=== PATIENT | female | born 1975 | race Caucasian/White ===

== ENCOUNTER → 2020-04-10 15:37 | Outpatient (CLI) | payer BC, SELFPAY ==
--- NOTE | ~2020-04-10 | MM_ITS ---
EXAMINATION: MM screening [facility] w mahendra HISTORY: Screening mammogram TECHNIQUE: Craniocaudal and mediolateral oblique 3-D tomosynthesis images were obtained and synthetic 2-D images were generated. CAD analysis was submitted and interpreted. COMPARISON: Comparison to multiple prior studies sequentially, with oldest reviewed study dated 02/09. BREAST PARENCHYMAL COMPOSITION: The breasts are heterogeneously dense, which may obscure small masses . FINDINGS: There is no evidence of suspicious mass, calcification, or architectural distortion to sugg est malignancy in either breast. There has been no suspicious interval change. IMPRESSION: 1. No mammographic evidence of malignancy. 2. Recommend routine screening mammography in one year. BI-RADS Category 1: Negative Reviewed, dictated and finalized at location A.
== END ==
PROVIDERS: Visit Provider Obstetrics & Gynecology
DX: Z12.31 Encounter for screening mammogram for malignant neoplasm of breast (principal)
CPT/HCPCS: 77063; 77067

== ENCOUNTER → 2021-05-31 16:36 | Outpatient (CLI) | payer BC, SELFPAY ==
--- NOTE | ~2021-05-31 | MM_ITS ---
EXAMINATION: MM screening [facility] BI w mahendra HISTORY: Screening mammogram TECHNIQUE: Craniocaudal and mediolateral oblique 3-D tomosynthesis images were obtained and synthetic 2-D images were generated. CAD analysis was submitted and interpreted. COMPARISON: 04/10/2020, 03/25/2018, 03/04/2018 BREAST PARENCHYMAL COMPOSITION: The breasts are heterogeneously dense, which may obscure small masses . FINDINGS: There is no evidence of suspicious mass, calcification, or architectural distortion to sugg est malignancy in either breast. There has been no suspicious interval change. IMPRESSION: 1. No mammographic evidence of malignancy. 2. Recommend routine screening mammography in one year. BI-RADS Category 1: Negative Reviewed, dictated and finalized at location A.
== END ==
PROVIDERS: Visit Provider Obstetrics & Gynecology
DX: Z12.31 Encounter for screening mammogram for malignant neoplasm of breast (principal)
CPT/HCPCS: 77063; 77067

== ENCOUNTER → 2022-08-29 11:58 | Outpatient (CLI) | payer BC, SELFPAY ==
--- NOTE | ~2022-08-29 | MM_ITS ---
EXAMINATION: MM screening [facility] BI w mahendra HISTORY: Screening TECHNIQUE: Craniocaudal and mediolateral oblique 3-D tomosynthesis images were obtained and synthetic 2-D images were generated. CAD analysis was submitted and interpreted. COMPARISON: Comparison to multiple prior studies sequentially, with oldest reviewed study dated 08/14. BREAST PARENCHYMAL COMPOSITION: The breasts are heterogeneously dense, which may obscure small masses . FINDINGS: There is no evidence of suspicious mass, calcification, or architectural distortion to sugg est malignancy in either breast. There has been no suspicious interval change. IMPRESSION: 1. No mammographic evidence of malignancy. 2. Recommend routine screening mammography in one year. BI-RADS Category 1: Negative Reviewed, dictated and finalized at location A. [employer]
== END ==
PROVIDERS: Visit Provider Obstetrics & Gynecology
DX: Z12.31 Encounter for screening mammogram for malignant neoplasm of breast (principal)
CPT/HCPCS: 77063; 77067

== ENCOUNTER 2024-03-02 00:05 | Day surgery (SDC) | payer BC, SELFPAY ==
[2024-02-17 15:31] VITALS: BMI 29.7
[2024-03-02 08:00] VITALS: BP 123/69; PULSE 83; RESP 18; TEMP 36.3; O2SAT 99; BMI 28.8
[2024-03-02] MEDS: LACTATED RINGERS 1,000 ML 150 ML IV CONT (08:03)
--- NOTE | 2024-03-02 08:27 | WPDANESEPPF ---
Anes - Initial Pre Proc Eval Procedure: Operation Date: 03/02/24 09:30 Proposed Procedures p Screening Colonoscopy - Elías Wilkes MD Date/Time: 03/02/24 08:27 Surgeon: Elías Wilkes MD Pre Op Diagnosis: Neoplasm screening Patient Data Age: 48 Gender: F Height: 1.7 m Weight: 83.6 kg Last Vital Signs Temp 97.3 F L 03/02/24 08:00 Pulse 83 03/02/24 08:00 Resp 18 03/02/24 08:00 BP 123/69 03/02/24 08:00 Pulse Ox 99 03/02/24 08:00 O2 Del Method Room Air 03/02/24 08:00 Allergies Allergy/AdvReac Type Severity Reaction Status Date / Time No Known Allergies Allergy Unknown Verified 03/02/24 07:59 Home Medications Medication Instructions Recorded Confirmed Type fluticasone propionate 50 1 spray intranasal DAILY 01/25/21 03/02/24 History mcg/actuation nasal spray,suspension (Flonase Allergy Relief) calcium carbonate (Calcium 600) 600 mg PO DAILY 12/11/23 03/02/24 History omega-3 fatty acids 1,000 mg 1,000 mg PO DAILY 12/11/23 03/02/24 History capsule Patient hx anesthesia problems: none Family hx anesthesia problems: none Results Review: All pre-operative results and documents have been reviewed as part of the pre-operative evaluation. [facility] Past Medical History Medical History Vaginal delivery Surgical History Surgical History Previous section Family History Family History Grandparent Hypertension Family history of coronary artery disease, Onset Age: 72 Social History Social History Smoking status: Never smoker Second hand tobacco smoke exposure: No Alcohol intake: current Drinks per week: 8 Alcohol use details: GLASSES WINE Substance use: never Substance use type: does not use Do You Feel Safe in your Home?: Yes Lack of Transportation: No Lack of Food: Never True Current Housing: I Have Housing Concerned About Future Housing: No Difficulty Paying Gas/Electric Bills: No Difficulty Paying for Meds: No Currently Unemployed: No Education: Bachelor's Degree Difficulty w/ Childcare or Family Care: No Living arrangements: with family Spiritual care concerns: No Anes - Eval Final PreProcedure Day of Procedure 03/02/24 08:27 Patient weight: normal Heart: regular rate and rhythm Lungs: clear to auscultation Airway: Mallampati scale class II Neurological: alert and oriented Last oral intake: >/= 8 hours ASA classification: II Emergent: no Anesthetic plan: proceed Anesthesia type and monitoring: general GIVS and standard monitoring Results Review: All pre-operative results and documents have been reviewed as part of the pre-operative evaluation. Informed Consent: The patient's anesthetic plan and its attendant risks and benefits were discussed with the patient/family/POA. Questions were solicited and answers provided to the satisfaction of the patient/family/POA.
--- NOTE | 2024-03-02 08:41 | PM.HPGS ---
History of Present Illness History of Present Illness Consent: Risks, benefits, and alternatives have been discussed and questions answered. Patient agrees to proceed with procedure. Chief complaint: Neoplasm screening Narrative: Ale Milligan is a 48 year old female here for first screening colonoscopy Review of Systems Review of Systems: All systems reviewed & are unremarkable except as noted in HPI and below PMFSH Past Medical History Medical History (Updated 03/02/24 @ 08:45 by Elías Wilkes MD) Colon cancer screening Vaginal delivery Surgical History Surgical History Previous section Family History Family History Grandparent Hypertension Family history of coronary artery disease, Onset Age: 72 Social History Social History Smoking status: Never smoker Second hand tobacco smoke exposure: No Alcohol intake: current Drinks per week: 8 Alcohol use details: GLASSES WINE Substance use: never Substance use type: does not use Do You Feel Safe in your Home?: Yes Lack of Transportation: No Lack of Food: Never True Current Housing: I Have Housing Concerned About Future Housing: No Difficulty Paying Gas/Electric Bills: No Difficulty Paying for Meds: No Currently Unemployed: No Education: Bachelor's Degree Difficulty w/ Childcare or Family Care: No Living arrangements: with family Spiritual care concerns: No Meds Home Medications and Allergies Home Medications Medication Instructions Recorded Confirmed Type fluticasone propionate 50 1 spray intranasal DAILY 01/25/21 03/02/24 History mcg/actuation nasal spray,suspension (Flonase Allergy Relief) calcium carbonate (Calcium 600) 600 mg PO DAILY 12/11/23 03/02/24 History omega-3 fatty acids 1,000 mg 1,000 mg PO DAILY 12/11/23 03/02/24 History capsule Allergies Allergy/AdvReac Type Severity Reaction Status Date / Time No Known Allergies Allergy Unknown Verified 03/02/24 07:59 Vital Signs Vital Signs - 24 hr 03/02/24 08:00 Temperature 97.3 F L Pulse Rate 83 Respiratory Rate 18 Blood Pressure 123/69 Pulse Oximetry 99 Oxygen Delivery Room Air Exam Const: General: comfortable and no acute distress HENMT: Face/Nose/Sinus: Normal nares present Eyes: General: appearance normal, both eyes and all related structures Neck: Neck: no JVD Resp: Auscultation: clear to auscultation bilaterally Cardio: Rate: regular rate Rhythm: regular rhythm GI: Inspection: non-distended GI Palp: Yes Soft to palpation Skin: General skin exam: normal color Neuro: General: gait normal Speech: normal speech Extrem: General: normal to inspection Psych: Mental Status: mental status grossly normal Assessment and Plan Assessment and plan (1) Colon cancer screening: Code(s): Z12.11 - Encounter for screening for malignant neoplasm of colon Status: Acute Assessment and Plan: colonoscopy
[2024-03-02 09:04] VITALS: BP 96/56; PULSE 63; RESP 19; O2SAT 98
[2024-03-02 09:14] VITALS: BP 112/64; PULSE 65; RESP 15; O2SAT 98
[2024-03-02 09:24] VITALS: BP 114/67; PULSE 63; RESP 18; O2SAT 100
== END 2024-03-02 09:34 | disposition home or self-care (01) ==
PROVIDERS: PCP Family Medicine; Visit Provider Internal Medicine Gastroenterology
PROC: 0DJD8ZZ Inspection of Lower Intestinal Tract, Via Natural or Artificial Opening Endoscopic (ICD-10-PCS; CPT 45378; principal; 2024-03-02 09:30)
DX: Z12.11 Encounter for screening for malignant neoplasm of colon (principal); D12.2 Benign neoplasm of ascending colon; D12.0 Benign neoplasm of cecum; D12.3 Benign neoplasm of transverse colon; K64.8 Other hemorrhoids
CPT/HCPCS: 45380; 45385; 88305; J2001; J2704; J7120

== ENCOUNTER 2024-04-22 11:04 | Outpatient (CLI) | payer BC, SELFPAY ==
[2024-04-27 02:54] LABS: FSH 76.7 mIU/mL
== END 2024-04-22 11:05 | disposition home or self-care (01) ==
LOC: ANHLAB 11:05
PROVIDERS: PCP Family Medicine; Visit Provider Obstetrics & Gynecology
DX: N91.2 Amenorrhea, unspecified (principal)
CPT/HCPCS: 36415; 83001

== ENCOUNTER 2024-05-17 14:29 | Outpatient (CLI) | payer BC, SELFPAY ==
--- NOTE | ~2024-05-17 | MM_ITS ---
EXAMINATION: MM screening [facility] BI w mahendra HISTORY: Screening TECHNIQUE: Craniocaudal and mediolateral oblique 3-D tomosynthesis images were obtained and synthetic 2-D images were generated. CAD analysis was submitted and interpreted. COMPARISON: Comparison to multiple prior studies sequentially, with oldest reviewed study dated 08/14. BREAST PARENCHYMAL COMPOSITION: Dense: The breasts are heterogeneously dense, which may obscure small masses FINDINGS: There is no evidence of suspicious mass, calcification, or architectural distortion to sugg est malignancy in either breast. There has been no suspicious interval change. IMPRESSION: 1. No mammographic evidence of malignancy. 2. Recommend routine screening mammography in one year. BI-RADS Category 1: Negative Reviewed, dictated and finalized at location B.
== END 2024-05-17 14:30 ==
LOC: MICIMG 14:30
PROVIDERS: PCP Family Medicine; Visit Provider Obstetrics & Gynecology
DX: Z12.31 Encounter for screening mammogram for malignant neoplasm of breast (principal)
CPT/HCPCS: 77063; 77067

== ENCOUNTER 2024-08-04 07:13 | Outpatient (CLI) | payer BC, SELFPAY ==
[2024-08-04 08:02] LABS: Alanine Aminotransferase 22 U/L (6-35); Albumin Level 4.6 g/dL (3.5-5.1); Alkaline Phosphatase 62 U/L (38-126); Anion Gap 7 mmol/L (4-12); Aspartate Amino Transferase 29 U/L (14-36); Bilirubin,Total 0.5 mg/dL (0.2-1.3); Blood Urea Nitrogen 23 mg/dL (7-17); Calcium 9.7 mg/dL (8.4-10.2); Carbon Dioxide 31 mmol/L (22-30); Chloride 101 mmol/L (98-107); Cholesterol 212 mg/dL (0-200); Estimated Glomerular Filt Rate > 60; Glucose 100 mg/dL (65-110); HDL Direct 58 mg/dL; Potassium 4.1 mmol/L (3.4-5.0); Sodium 139 mmol/L (137-145); Triglycerides 126 mg/dL (<150)
[2024-08-04 08:12] LABS: LDL Cholesterol Direct 95 mg/dL
== END 2024-08-04 07:14 | disposition home or self-care (01) ==
LOC: ANHLAB 07:16
PROVIDERS: PCP Family Medicine; Visit Provider Student in an Organized Health Care Education/Training Program
DX: Z00.00 Encounter for general adult medical examination without abnormal findings (principal)
CPT/HCPCS: 36415; 80053; 80061

== ENCOUNTER 2024-09-15 07:20 | Outpatient (CLI) | payer BC, SELFPAY ==
[2024-09-15 08:46] LABS: Anion Gap 6 mmol/L (4-12); Blood Urea Nitrogen 20 mg/dL (7-17); Calcium 9.2 mg/dL (8.4-10.2); Carbon Dioxide 30 mmol/L (22-30); Chloride 103 mmol/L (98-107); Estimated Glomerular Filt Rate > 60; Glucose 93 mg/dL (65-110); Sodium 139 mmol/L (137-145)
== END 2024-09-15 07:21 | disposition home or self-care (01) ==
LOC: ANHLAB 07:20
PROVIDERS: PCP Family Medicine; Visit Provider Student in an Organized Health Care Education/Training Program
DX: R79.9 Abnormal finding of blood chemistry, unspecified (principal)
CPT/HCPCS: 36415; 80048

== ENCOUNTER 2025-06-06 14:41 | Outpatient (CLI) | payer BC, SELFPAY ==
--- NOTE | ~2025-06-06 | MM_ITS ---
EXAMINATION: screening [facility] BI w mahendra INDICATION: Asymptomatic, referred for screening mammogram COMPARISON: 05/17/2024 through 09/09/2016 TECHNIQUE: Digital Breast Tomosynthesis CC, MLO views of Both breasts were obtained with computer-aided detection to assist in interpretation of the study. FINDINGS: The breasts are heterogeneously dense, which may obscure small masses. There is an asymmetry seen on the MLO view in the Superior right breast middle third. Elsewhere, there are no mammographic features of malignancy. IMPRESSION: 1. Right breast Asymmetry. 2. No evidence of malignancy in the Left breast. RECOMMENDATION: Right breast Diagnostic mammogram with true lateral, appropriate spot compression views and an ultrasound if needed. BI-RADS Category 0: Incomplete: Needs additional imaging evaluation. Reviewed, dictated and finalized at location B. IMPRESSION: 1. Right breast Asymmetry. 2. No evidence of malignancy in the Left breast. RECOMMENDATION: Right breast Diagnostic mammogram with true lateral, appropriate spot compressi on views and an ultrasound if needed. BI-RADS Category 0: Incomplete: Needs additional imaging evaluation.
--- NOTE | ~2025-06-06 | US_ITS ---
EXAMINATION: US pelvic complete w TV INDICATION: Postmenopausal bleeding Comparison:Ultrasound dated 12/21/2018 TECHNIQUE: Multiple transabdominal and endovaginal sonographic images of the pelvis performed. FINDINGS: The uterus measures 8.8 x 5.5 x 6 cm. There is a hypoechoic exophytic mass of the uterus measuring 2.6 cm, consistent with a fibroid. The endometrial complex measures 3 mm. There is a small cyst at the endometrium measuring 5 mm, likely of no clinical significance. There is a small 9 mm hypoechoic mass of the myometrium, likely a fibroid. The right ovary measures 2.9 x 2.1 x 2.6 cm and the left ovary measures 2.7 x 2 x 3 cm. There are small bilateral ovarian cyst measuring 1.3 cm on the right and 2 cm on the left.. Normal doppler signal in both ovaries. There is trace free fluid in the right adnexa. There are no abnormal masses seen on either side. IMPRESSION: 1. Fibroid uterus, largest discrete mass measuring 2.6 cm. 2: Small bilateral ovarian cysts, largest measuring 2 cm and the left ovary. Reviewed, dictated and finalized at location O.
== END 2025-06-06 14:42 | disposition home or self-care (01) ==
LOC: MICIMG 14:43
PROVIDERS: PCP Family Medicine; Visit Provider Obstetrics & Gynecology
DX: Z12.31 Encounter for screening mammogram for malignant neoplasm of breast (principal); D25.9 Leiomyoma of uterus, unspecified; N83.201 Unspecified ovarian cyst, right side; N83.202 Unspecified ovarian cyst, left side; N64.89 Other specified disorders of breast; N95.0 Postmenopausal bleeding
CPT/HCPCS: 76830; 76856; 77063; 77067

== ENCOUNTER 2025-06-08 07:13 | Outpatient (CLI) | payer BC, SELFPAY ==
[2025-06-09 11:09] LABS: FSH 23.8 mIU/mL (.)
== END 2025-06-08 07:14 | disposition home or self-care (01) ==
LOC: ANHLAB 07:14
PROVIDERS: PCP Family Medicine; Visit Provider Obstetrics & Gynecology
DX: N95.0 Postmenopausal bleeding (principal)
CPT/HCPCS: 83001

== ENCOUNTER 2025-07-01 13:07 | Outpatient (CLI) | payer BC, SELFPAY ==
--- NOTE | ~2025-07-01 | MMUS_ITS ---
EXAMINATION: US breast RT limited, MM diagnostic [facility] RT w mahendra HISTORY: Inconclusive mammogram TECHNIQUE: Additional imaging of the right breast]] were performed using full field digital mammography. 3-D tomosynthesis were also obtained and synthetic 2- D images were generated. CAD analysis was submitted and interpreted. High- resolution right breast ultrasound was performed.] ] COMPARISON: Mammograms from 06/06/2025 and 05/17/2024 BREAST PARENCHYMAL COMPOSITION: The breasts are extremely dense which lowers the sensitivity of mammography. FINDINGS: MAMMOGRAPHIC FINDINGS: Asymmetry in the upper right breast, middle depth, seen in the right MLO projection. No convincing sonographic correlate. The finding is probably benign. ULTRASOUND: There is an 8 x 8 x 5 mm benign cyst in the right breast at the 10:00 position 4 cm from the nipple. No other cystic or solid mass identified in the area of concern in the right breast. IMPRESSION/RECOMMENDATION: 1. Probably benign finding in the right breast. A diagnostic right breast mammogram and a diagnostic right breast ultrasound in 6 months is recommended. BI-RADS 3-Probably benign-Short interval follow-up suggested. Reviewed, dictated and finalized at location Q. IMPRESSION/RECOMMENDATION: 1. Probably benign finding in the right breast. A diagnostic right breast mammo gram and a diagnostic right breast ultrasound in 6 months is recommended. BI-RADS 3-Probably benign-Short interval follow-up suggested. IMPRESSION/RECOMMENDATION: 1. Probably benign finding in the right breast. A diagnostic right breast mammo gram and a diagnostic right breast ultrasound in 6 months is recommended. BI-RADS 3-Probably benign-Short interval follow-up suggested.
== END 2025-07-01 13:08 | disposition home or self-care (01) ==
LOC: ANHFOHIMG 13:08
PROVIDERS: PCP Family Medicine; Visit Provider Obstetrics & Gynecology
DX: R92.8 Other abnormal and inconclusive findings on diagnostic imaging of breast (principal)
CPT/HCPCS: 76642; 77061; 77065; G0279

== ENCOUNTER 2025-08-01 13:16 | Outpatient (CLI) | payer BC, SELFPAY ==
--- NOTE | ~2025-08-01 | DEXA_ITS ---
Bone Density Report Name: SAM OLVERA Age: 49 Sex: Female Ethnicity: White Date of : 1975 Indication: screening for osteoporosis; Referring Provider: KHURRAM HINES Study: Bone densitometry was performed. Exam Date: August 01, 2025 Accession number: [id number] Bone Density: Region BMD T-score Z-score Classification AP Spine(L1-L4) 0.972 -0.7 0.2 Normal Femoral Neck (Left) 0.891 0.4 1.2 Normal Total Hip (Left) 1.115 1.4 2.0 Normal Femoral Neck (Right) 0.893 0.4 1.3 Normal Total Hip (Right) 1.151 1.7 2.3 Normal Total Hip Mean 1.133 1.6 2.2 Normal World Health Organization criteria for BMD impression classify patients as: Normal (T-score at or above -1.0), Osteopenia (T-score between -1.0 and -2.5), or Osteoporosis (T-score at or below -2.5). 10-year Fracture Risk: FRAX not reported because: Premenopausal woman All T-scores for Spine Total, Hip Total, Femoral Neck at or above -1.0 Clinical Information Provided by Patient: Has used the following medications: Vitamin D, Calcium Patient maximum height was 67 No regular weight bearing exercise Drinks caffeinated beverages Onset of menses at age 10 Premenopausal Number of children 2 Missed period for more than 6 months in a row Impression: The patient's bone mass is within expected range for age, gender and ethnicity. Discussion: BONE DENSITY IS WITHIN EXPECTED LIMITS FOR AGE, SEX AND RACE. Bone density is within expected limits for age, sex and race at all sites measured. The patient should follow a healthful lifestyle (good nutrition with adequate calcium and vitamin D, and appropriate weight-bearing exercise). Follow-Up: Consider repeating this study in 5 years or sooner if there is some new clinical indication. Reported by: ASHLEY on 08/01/2025 1:37:00 PM. Reviewed, dictated and finalized at location A.
== END 2025-08-01 13:17 | disposition home or self-care (01) ==
LOC: MICIMG 13:17
PROVIDERS: PCP Student in an Organized Health Care Education/Training Program; Visit Provider Obstetrics & Gynecology
DX: R29.890 Loss of height (principal); Z13.820 Encounter for screening for osteoporosis
CPT/HCPCS: 77080

== ENCOUNTER 2025-08-17 02:07 | Day surgery (SDC) | payer BC, SELFPAY ==
[2025-08-05 14:14] VITALS: BMI 29.2
--- NOTE | 2025-08-05 14:29 | PC.NURSE ---
[facility] has started construction of its new state of the art ER which will open Spring 2026. With this, we anticipate parking may be a challenge for some our surgical patients and families. Parking spaces are limited but are available for all Surgical, obstetrics, and ER patients sharing this lot. If you arrive and find you are having a hard time finding a parking space, please note that we understand the challenges, please drive around the hospital and park near Hospital Entrance 1. When you enter this entrance, you can ask a volunteer to direct or take you back to the surgical waiting area to check in. We appreciate everyone?s understanding of these expected challenges while we build for your future. Report to the Outpatient Waiting Room, entrance under the green pavilion located off [address], at time _0930AM on date 08/17/25 . Planned Procedure Time: _1130AM .? Time changes happen often and if your time is changed the preop area will call you the afternoon before. - You and your visitor will be asked to self-screen and do not enter if you have any COVID symptoms. Please call surgeon if you need to reschedule. - A mask is optional within the hospital at this time. Patients may have clear liquids (water, carbonated beverages, clear teas, apple juice) until 3 hours prior to surgery with a maximum of 20 ounces. - No food from midnight until time of surgery and no smoking, or chewing tobacco (or any form of nicotine). No chewing gum, candy or mints. Take only the following medications with a SIP of water on the morning of surgery: __N/A DO NOT STOP ANY OF YOUR OTHER PRESCRIPTION MEDICATIONS PRIOR TO SURGERY EXCEPT THE FOLLOWING Hold all vitamins and supplements for 3 days per anesthesiologist. Medications to discontinue per physician N/A Date to take last dose____N/A Please no make-up, nail maori, hairspray, perfume, deodorant, or body powder the day of surgery.? No jewelry (including any body piercings) or valuables the day of surgery, leave them at home.? Please take a shower or bath the night before, or the morning of, surgery with an antibacterial soap.? Wear comfortable, loose fitting clothing.? - Jewelry must be removed prior to entering the operating room.? Rings and piercings that are not removed may be cut off. - The hospital will not accept responsibility for valuables.? - Please leave all valuables, including medications, at home the day of surgery. If you are going home after surgery, a licensed city driver must drive you home.? - NO public transportation without another adult if you receive anesthesia. - We recommend that an adult stay with you for 24 hours following discharge. - We also recommend that you do not drive, make important decision, drink alcoholic beverages, or take any drugs that were not prescribed by your health care provider for at least 24 hours after your discharge time. Follow any additional instructions given to you from your surgeon. Telephone instructions given to __SAM and asked if any additional questions and then verbalized understanding. Patient advised to call surgeon office or pre surgery nurse liaison [phone] if any additional questions.
[2025-08-17 07:50] VITALS: BP 125/76; PULSE 63; RESP 20; TEMP 36.6; O2SAT 99
[2025-08-17] MEDS: ACETAMINOPHEN 500 MG TABLET 1000 MG PO (08:05)
[2025-08-17] MEDS: LACTATED RINGERS 1,000 ML 30 ML IV CONT (08:10)
--- NOTE | 2025-08-17 08:14 | WPDHPUPDATE1 ---
History and Physical Update Update Date/Time: 08/17/25 08:14 History and Physical has been reviewed, including an updated exam of the patient. There are NO changes in the patient's condition. Risks, benefits, and alternatives have been discussed and questions answered. Patient agrees to proceed with procedure.
[2025-08-17 08:29] LABS: BEDSIDEPREGUCG Negative (Negative)
[2025-08-17] MEDS: ceFAZolin 2 GM in SODIUM CHLORIDE 0.9% IV 50 ML 100 ML IVPB (09:09)
--- NOTE | 2025-08-17 09:09 | WPDANESEPPF ---
Anes - Initial Pre Proc Eval Procedure: Operation Date: 08/17/25 09:30 Proposed Procedures p Hysteroscopy, Dilation and Curettage with Removal Any Endometrial Lesions as Needed - Gerry Quinn MD Date/Time: 08/17/25 09:09 Surgeon: Gerry Quinn MD Pre Op Diagnosis: abn uterine and vag bleeding, endometrial polyp Patient Data Age: 50 Gender: F Height: 1.7 m Weight: 84.65 kg Last Vital Signs Temp 36.6 C 08/17/25 07:50 Pulse 63 08/17/25 07:50 Resp 20 08/17/25 07:50 BP 125/76 08/17/25 07:50 Pulse Ox 99 08/17/25 07:50 O2 Del Method Room Air 08/17/25 07:50 Allergies Allergy/AdvReac Type Severity Reaction Status Date / Time No Known Allergies Allergy Unknown Verified 08/17/25 07:54 Home Medications ?Medication ?Instructions ?Recorded ?Confirmed ?Type fluticasone propionate 50 1 spray intranasal DAILY 01/25/21 08/16/25 History mcg/actuation nasal spray,suspension (Flonase Allergy Relief) calcium carbonate (Calcium 600) 600 mg PO DAILY 12/11/23 08/17/25 History omega-3 fatty acids 1,000 mg 1,000 mg PO DAILY 12/11/23 08/17/25 History capsule clobetasol 0.05 % topical spray 1 applic topical BID #59 mL 06/01/24 08/16/25 Rx (Clobex) glucosamine HCl 1,500 mg tablet 1,500 mg PO DAILY 06/01/24 08/17/25 History drospirenone (contraceptive) 4 mg 4 mg PO DAILY #84 tabs 07/12/25 08/17/25 Rx (28) tablet (Slynd) Laboratory Tests 08/17/25 08:00 POC Urine HCG, Qual Negative (Negative) Patient hx anesthesia problems: none Family hx anesthesia problems: none Results Review: All pre-operative results and documents have been reviewed as part of the pre-operative evaluation. [facility] Past Medical History Medical History Colon cancer screening Vaginal delivery Surgical History Surgical History Previous section Family History Family History Grandparent Hypertension Family history of coronary artery disease, Onset Age: 72 Social History Social History Smoking status: Never smoker Second hand tobacco smoke exposure: No Alcohol intake: current Drinks per week: 8 Alcohol use details: GLASSES WINE Substance use: never Substance use type: does not use Do You Feel Safe in your Home?: Yes Lack of Transportation: No Lack of Food: Never True Current Housing: I Have Housing Concerned About Future Housing: No Difficulty Paying Gas/Electric Bills: No Difficulty Paying for Meds: No Currently Unemployed: No Education: Bachelor's Degree Difficulty w/ Childcare or Family Care: No Living arrangements: with family Spiritual care concerns: No Anes - Eval Final PreProcedure Day of Procedure 08/17/25 09:09 Patient weight: overweight Heart: regular rate and rhythm Lungs: clear to auscultation Airway: Mallampati scale class II Neurological: alert and oriented Last oral intake: >/= 8 hours ASA classification: II Emergent: no Anesthetic plan: proceed Anesthesia type and monitoring: general GIVS and standard monitoring Results Review: All pre-operative results and documents have been reviewed as part of the pre-operative evaluation. Informed Consent: The patient's anesthetic plan and its attendant risks and benefits were discussed with the patient/family/POA. Questions were solicited and answers provided to the satisfaction of the patient/family/POA.
[2025-08-17] MEDS: LIDOCAINE 1% LOCAL INJ 20 ML VIAL 8 ML INFILTRATE (09:20)
--- NOTE | 2025-08-17 09:23 | S_PTH ---
PATIENT: Ale Milligan LOC: [facility]#:[id number] AGE/SX: 50/F ROOM: RE08/17/[address]: Gerry Quinn MD : 1975 BED: DIS: 08/17/2025 SPEC #: [id number] RECD: 08/17/25 11:28 STATUS: ASHLEIGH REJuany #: [id number] LUIS FERNANDO: 08/17/25 09:[address]: Gerry Quinn DEPT: [facility] Surgical RECD BY: Krysta Wilson ENTERED: 08/17/25 11:28 SP TYPE: Surgical OTHR DR: Caron Harman PA-C Tissues: A - Endometrial Curettings Procedures: Hematoxylin and Eosin Stain Gross and Microscopic Level 4
[2025-08-17 09:32] VITALS: BP 95/56; PULSE 70; RESP 14; O2SAT 95
--- NOTE | 2025-08-17 09:36 | W.PM.PROC2 ---
Procedure Note - Detailed Date of Procedure 08/17/25 Pre-op Diagnosis abn uterine and vag bleeding, endometrial polyp Post-op Diagnosis Other ( Abnormal uterine bleeding) Procedure Performed diagnostic hysteroscopy with dilation and curettage Surgeon Gerry Quinn MD Anesthesia MAC and Local Indications history of abnormal bleeding and endometrial biopsy showing endometrial polyp Findings normal uterine cavity Description of Procedure After informed consent was obtained patient was taken to the operating room and adequate IV sedation was administered. Attention was turned to the vagina. Speculum was inserted. Single-tooth tenaculum placed on the anterior lip of the cervix. a cervical block with 1% lidocaine plain was administered. The cervix was dilated to an 4 Quintero dilator. The hysteroscope was inserted into the cavity using hydrodilation. The findings were a normal uterine cavity. The hysteroscope was removed. A curettage was performed. The hysteroscope was removed the single-tooth tenaculum was removed hemostasis was noted at the tenaculum site. Sponge count correct. The patient taken to recovery in stable condition. Estimated Blood Loss 5 Packing No Pathology Yes ( Endometrial curetting) Complications No immediate complications Condition Stable Disposition Same day [facility] Billing Surgery - Charge Forward: Surgery Billing
[2025-08-17 10:02] VITALS: BP 104/63; PULSE 60
[2025-08-17 10:40] VITALS: BP 115/75; PULSE 75
== END 2025-08-17 10:40 | disposition home or self-care (01) ==
PROVIDERS: PCP Student in an Organized Health Care Education/Training Program; Visit Provider Obstetrics & Gynecology
PROC: 0U5B8ZZ Destruction of Endometrium, Via Natural or Artificial Opening Endoscopic (ICD-10-PCS; CPT 58563; principal; 2025-08-17 09:30)
DX: N85.8 Other specified noninflammatory disorders of uterus (principal); Z98.890 Other specified postprocedural states; Z82.49 Family history of ischemic heart disease and other diseases of the circulatory system
CPT/HCPCS: 58555; 88305; J0690; A9270; J1885; J2003; J2250; J2704; J3010; J7120